=== PATIENT | male | born 1975 | race Caucasian/White ===

== ENCOUNTER → 2018-12-08 | Outpatient (CLI) | payer OTHER ==
[~2018-12-08] VITALS: Ht 185.4 cm; Wt 113.6 kg
[2018-12-08 13:09] VITALS: BP 188/101; PULSE 78
[2018-12-08 13:40] VITALS: BP 153/103; PULSE 79
== END ==
LOC: COL.RAD 12-02 06:30
DX: M54.5 Low back pain (principal)
CPT/HCPCS: J3301

== ENCOUNTER → 2018-12-26 | Outpatient (CLI) | payer OTHER ==
[~2018-12-26] VITALS: Ht 185.4 cm; Wt 112.7 kg
[2018-12-26 09:20] VITALS: BP 165/98; PULSE 72
[2018-12-26 10:15] VITALS: BP 151/108; PULSE 73
== END ==
LOC: COL.RAD 08:45
DX: M54.5 Low back pain (principal)
CPT/HCPCS: J3301